=== PATIENT | male | born 1960 | race African-American/Black ===

== ENCOUNTER 2017-05-16 16:49 | Emergency (ER) | payer SELFPAY | END 2017-05-16 18:18 | disposition home or self-care (01) | LOC: ER 16:49 | DX: J34.89 Other specified disorders of nose and nasal sinuses (principal); R51 Headache; I10 Essential (primary) hypertension; Z79.899 Other long term (current) drug therapy | CPT/HCPCS: 99281 ==

== ENCOUNTER 2017-12-23 21:01 | Emergency (ER) | payer SELFPAY ==
[2017-12-23] MEDS ORDERED: IV NORMAL SALINE 1000ML BAG 1,000 ML IV ONE (21:30)
[2017-12-23 21:40] LABS: BASO # 0.1 x10^3/uL (0.0-0.2); BASO % 1 % (0-3); EOS # 0.1 x10^3/uL (0.0-0.7); EOS % 1 % (0-3); HEMATOCRIT 53.3 % (39.0-53.0); HEMOGLOBIN 18.6 g/dL (13.0-17.5); LYMPH # 3.7 x10^3/uL (1.0-4.8); LYMPH % 38 % (24-48); MEAN CORPUSCULAR HEMOGLOBIN 33 pg (25-35); MEAN CORPUSCULAR HGB CONC 35 g/dL (31-37); MEAN CORPUSCULAR VOLUME 96 fL (79-100); MONO # 0.9 x10^3/uL (0.0-1.1); MONO % 9 % (0-9); NEUT # 4.9 x10^3uL (1.8-7.7); NEUT % 51 % (31-73); PLATELET COUNT 212 x10^3/uL (140-400); RED BLOOD COUNT 5.55 x10^6/uL (4.30-5.70); RED CELL DISTRIBUTION WIDTH 14.2 % (11.5-14.5); WHITE BLOOD COUNT 9.7 x10^3/uL (4.0-11.0)
--- NOTE | 2017-12-23 21:41 | RAD ---
EXAM: AP and lateral views of the right humerus DATE: 12/23/2017 9:14 PM INDICATION: right upper arm pain, blunt trauma COMPARISON: No Prior FINDINGS/ IMPRESSION: No evidence of acute fracture or dislocation. No significant soft tissue swelling. Lateral epicondylar enthesopathy. High riding humeral head suggests rotator cuff tear or tendinosis. Electronically signed by: Kevan Stanley MD (12/23/2017 9:38 PM) [facility]
[2017-12-23] MEDS ORDERED: IOHEXOL 300 MG/ML 100ML VIAL. IV ONE (21:45)
[2017-12-23] MEDS ORDERED: CONTRAST GIVEN. MC PRN (21:45)
[2017-12-23 21:48] LABS: CALCIUM 9.3 mg/dL (8.5-10.1); CREATININE 1.4 mg/dL (0.7-1.3); GFR 63.2; POTASSIUM 3.4 mmol/L (3.5-5.1)
[2017-12-23 21:51] LABS: PROTHROMBIN TIME PATIENT 12.6 SEC (11.7-14.0)
[2017-12-23 21:54] LABS: ALBUMIN/GLOBULIN RATIO 0.9 (1.0-1.7); TOTAL BILIRUBIN 0.4 mg/dL (0.2-1.0); TOTAL PROTEIN 8.4 g/dL (6.4-8.2)
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
[2017-12-23] MEDS ORDERED: fentaNYL PF VIAL 100 MCG/2 ML VIAL IV ONE (22:45)
[2017-12-23] MEDS ORDERED: ORPHENADRINE CITRATE 60 MG/2 ML VIAL. IV ONE (22:45)
[2017-12-23] MEDS ORDERED: LABETALOL 20 MG/4 ML DISP.SYRIN. IVP ONE (23:15)
[2017-12-23 23:28] VITALS: BP 187/110
[2017-12-23 23:45] LABS: BILIRUBIN,URINE NEGATIVE (NEG); CLARITY,URINE CLEAR; COLOR,URINE YELLOW; NITRITE,URINE NEGATIVE (NEG); PROTEIN,URINE 30 mg/dL (NEG-TRACE); UROBILINOGEN,URINE 0.2 mg/dL (0.2 mg/dL)
[2017-12-23 23:53] LABS: BACTERIA,URINE 0 /HPF (0-FEW); RBC,URINE RARE /HPF (0-2); SQUAMOUS EPITHELIAL CELL,UR FEW /LPF
[2017-12-23 23:56] LABS: BARBITURATES NEG (NEG); BENZODIAZEPINES NEG (NEG); CANNABINOIDS NEG (NEG); COCAINE NEG (NEG); METHADONE NEG (NEG); OPIATES NEG (NEG); PHENCYCLIDINE NEG (NEG)
[2017-12-23 23:59] LABS: AMPHETAMINE/METHAMPHETAMINE NEG (NEG)
[2017-12-24] MEDS ORDERED: HYDR-971 PO (00:29)
[2017-12-24] MEDS ORDERED: ORPH100T PO (00:29)
--- NOTE | 2017-12-24 00:29 | PHYS DOC ---
Past Medical History Past Medical History: Hypertension Past Surgical History: No Surgical History Alcohol Use: Occasionally Drug Use: None Adult General Chief Complaint Chief Complaint: TRAUMA ACTIVATION HPI HPI Patient is a 57 year old [f__sex] who presents with [] Review of Systems Review of Systems Constitutional: Denies fever or chills [] Eyes: Denies change in visual acuity, redness, or eye pain [] HENT: Denies nasal congestion or sore throat [] Respiratory: Denies cough or shortness of breath [] Cardiovascular: No additional information not addressed in HPI [] GI: Denies abdominal pain, nausea, vomiting, bloody stools or diarrhea [] : Denies dysuria or hematuria [] Musculoskeletal: Denies back pain or joint pain [] Integument: Denies rash or skin lesions [] Neurologic: Denies headache, focal weakness or sensory changes [] Endocrine: Denies polyuria or polydipsia [] All other systems were reviewed and found to be within normal limits, except as documented in this note. Current Medications Current Medications Current Medications Medications (Trade) Dose Ordered Sig/Krys Start Time Stop Time Status Last Admin Dose Admin Cephalexin HCl (Keflex) 500 mg 1X ONCE 12/24/17 00:30 12/24/17 00:31 DC Fentanyl Citrate (Fentanyl 2ml Vial) 50 mcg 1X ONCE 12/23/17 22:45 12/23/17 22:46 DC 12/23/17 23:27 50 MCG Info (CONTRAST GIVEN -- Rx MONITORING) 1 each PRN DAILY PRN 12/23/17 21:45 12/25/17 21:44 Iohexol (Omnipaque 300 Mg/ml) 75 ml 1X ONCE 12/23/17 21:45 12/23/17 21:46 DC 12/23/17 21:53 75 ML Labetalol HCl (Normodyne Iv Push) 10 mg 1X ONCE 12/23/17 23:15 12/23/17 23:16 DC 12/23/17 23:28 10 MG Orphenadrine Citrate (Norflex) 60 mg 1X ONCE 12/23/17 22:45 12/23/17 22:46 DC 12/23/17 23:27 60 MG Sodium Chloride 1,000 ml @ 1,000 mls/hr 1X ONCE 12/23/17 21:30 12/23/17 22:29 DC 12/23/17 21:56 1,000 MLS/HR Allergies Allergies Allergies Coded Allergies Type Severity Reaction Last Updated Verified No Known Drug Allergies 05/16/17 No Physical Exam Physical Exam Constitutional: Well developed, well nourished, no acute distress, non-toxic appearance. [] HENT: Normocephalic, atraumatic, bilateral external ears normal, oropharynx moist, no oral exudates, nose normal. [] Eyes: PERRLA, EOMI, conjunctiva normal, no discharge. [] Neck: Normal range of motion, no tenderness, supple, no stridor. [] Cardiovascular:Heart rate regular rhythm, no murmur [] Lungs & Thorax: Bilateral breath sounds clear to auscultation [] Abdomen: Bowel sounds normal, soft, no tenderness, no masses, no pulsatile masses. [] Skin: Warm, dry, no erythema, no rash. [] Back: No tenderness, no CVA tenderness. [] Extremities: No tenderness, no cyanosis, no clubbing, ROM intact, no edema. [] Neurologic: Alert and oriented X 3, normal motor function, normal sensory function, no focal deficits noted. [] Psychologic: Affect normal, judgement normal, mood normal. [] Current Patient Data Vital Signs Vital Signs Date Time Temp Pulse Resp B/P (MAP) Pulse Ox O2 Delivery O2 Flow Rate FiO2 12/23/17 23:28 79 187/110 Lab Values Laboratory Tests Test 12/23/17 21:15 12/23/17 23:38 White Blood Count 9.7 x10^3/uL (4.0-11.0) Red Blood Count 5.55 x10^6/uL (4.30-5.70) Hemoglobin 18.6 g/dL (13.0-17.5) H Hematocrit 53.3 % (39.0-53.0) H Mean Corpuscular Volume 96 fL (79-100) Mean Corpuscular Hemoglobin 33 pg (25-35) Mean Corpuscular Hemoglobin Concent 35 g/dL (31-37) Red Cell Distribution Width 14.2 % (11.5-14.5) Platelet Count 212 x10^3/uL (140-400) Neutrophils (%) (Auto) 51 % (31-73) Lymphocytes (%) (Auto) 38 % (24-48) Monocytes (%) (Auto) 9 % (0-9) Eosinophils (%) (Auto) 1 % (0-3) Basophils (%) (Auto) 1 % (0-3) Neutrophils # (Auto) 4.9 x10^3uL (1.8-7.7) Lymphocytes # (Auto) 3.7 x10^3/uL (1.0-4.8) Monocytes # (Auto) 0.9 x10^3/uL (0.0-1.1) Eosinophils # (Auto) 0.1 x10^3/uL (0.0-0.7) Basophils # (Auto) 0.1 x10^3/uL (0.0-0.2) Prothrombin Time 12.6 SEC (11.7-14.0) Prothrombin Time INR 1.0 (0.8-1.1) PTT 23 SEC (24-38) L Sodium Level 140 mmol/L (136-145) Potassium Level 3.4 mmol/L (3.5-5.1) L Chloride Level 102 mmol/L (98-107) Carbon Dioxide Level 25 mmol/L (21-32) Anion Gap 13 (6-14) Blood Urea Nitrogen 15 mg/dL (8-26) Creatinine 1.4 mg/dL (0.7-1.3) H Estimated GFR (Cockcroft-Gault) 63.2 BUN/Creatinine Ratio 11 (6-20) Glucose Level 101 mg/dL (70-99) H Lactic Acid Level 2.1 mmol/L (0.4-2.0) H Calcium Level 9.3 mg/dL (8.5-10.1) Total Bilirubin 0.4 mg/dL (0.2-1.0) Aspartate Amino Transferase (AST) 31 U/L (15-37) Alanine Aminotransferase (ALT) 39 U/L (16-63) Alkaline Phosphatase 95 U/L (46-116) Total Protein 8.4 g/dL (6.4-8.2) H Albumin 4.0 g/dL (3.4-5.0) Albumin/Globulin Ratio 0.9 (1.0-1.7) L Lipase 281 U/L (73-393) Ethyl Alcohol Level 52 mg/dL (0-10) H Urine Collection Type Unknown Urine Color Yellow Urine Clarity Clear Urine pH 6.0 Urine Specific [place] >=1.030 Urine Protein 30 mg/dL (NEG-TRACE) Urine Glucose (UA) Negative mg/dL (NEG) Urine Ketones (Stick) Negative mg/dL (NEG) Urine Blood Trace (NEG) Urine Nitrite Negative (NEG) Urine Bilirubin Negative (NEG) Urine Urobilinogen Dipstick 0.2 mg/dL (0.2 mg/dL) Urine Leukocyte Esterase Small (NEG) Urine RBC Rare /HPF (0-2) Urine WBC 11-20 /HPF (0-4) Urine Squamous Epithelial Cells Few /LPF Urine Bacteria 0 /HPF (0-FEW) Urine Opiates Screen Neg (NEG) Urine Methadone Screen Neg (NEG) Urine Barbiturates Neg (NEG) Urine Phencyclidine Screen Neg (NEG) Urine Amphetamine/Methamphetamine Neg (NEG) Urine Benzodiazepines Screen Neg (NEG) Urine Cocaine Screen Neg (NEG) Urine Cannabinoids Screen Neg (NEG) Urine Ethyl Alcohol Pos (NEG) Laboratory Tests 12/23/17 21:15 Laboratory Tests 12/23/17 21:15 EKG EKG [] Radiology/Procedures Radiology/Procedures [] Course & Med Decision Making Course & Med Decision Making Pertinent Labs and Imaging studies reviewed. (See chart for details) [] Dragon Disclaimer Dragon Disclaimer This electronic medical record was generated, in whole or in part, using a voice recognition dictation system. Departure Departure Impression: Primary Impression: Head injury due to trauma Additional Impressions: Shoulder injury UTI (urinary tract infection) Disposition: 01 HOME, SELF-CARE Condition: IMPROVED Referrals: NO PCP (PCP) TAMIKO CEDILLO MD Patient Instructions: Head Injury, Adult, [id number], Shoulder Immobilizer, Shoulder Pain, [id number] Scripts Cephalexin (KEFLEX) 500 Mg Capsule 500 MG PO TID for 7 Days, #21 CAP Prov: MICHAEL JUARES DO 12/24/17 Orphenadrine Citrate (ORPHENADRINE CITRATE) 100 Mg Tablet.er 1 TAB PO BID PRN for MUSCLE PAIN, #14 TAB 0 Refills Prov: MICHALE JUARES DO 12/24/17 Hydrocodone/Apap 5-325 (NORCO 5-325 TABLET) 1 Each Tablet 1 TAB PO PRN Q6HRS PRN for PAIN, #14 TAB 0 Refills Prov: MICHAEL JUARES DO 12/24/17 Problem Qualifiers Primary Impression: Head injury due to trauma Encounter type: initial encounter Qualified Codes: S09.90XA - Unspecified injury of head, initial encounter Additional Impressions: Shoulder injury Encounter type: initial encounter Laterality: right Qualified Codes: S49.91XA - Unspecified injury of right shoulder and upper arm, initial encounter UTI (urinary tract infection) Urinary tract infection type: acute cystitis Hematuria presence: without hematuria Qualified Codes: N30.00 - Acute cystitis without hematuria MICHAEL JUARES DO Dec 24, 2017 00:29
[2017-12-24] MEDS ORDERED: CEPHALEXIN 250 MG CAPSULE. PO ONE (00:30)
[2017-12-24] MEDS ORDERED: CEPH-264 PO (00:48)
[2017-12-24] MEDS ORDERED: IOHEXOL 300 MG/ML 100ML VIAL. ONE (04:45)
== END 2017-12-24 00:40 | disposition home or self-care (01) ==
LOC: ER 21:01
DX: S49.91XA Unspecified injury of right shoulder and upper arm, initial encounter (principal); S09.90XA Unspecified injury of head, initial encounter; I10 Essential (primary) hypertension; N30.00 Acute cystitis without hematuria; X58.XXXA Exposure to other specified factors, initial encounter; Y93.89 Activity, other specified; Y92.89 Other specified places as the place of occurrence of the external cause; Y99.8 Other external cause status
CPT/HCPCS: 36415; 70450; 71260; 72125; 73060; 80053; 80307; 81001; 83605; 83690; 85025; 85610; 85730; 86850; 86900; 86901; 96361; 96374; 96375; 99285; G0480; J2360; J3010; J3490; J7030; Q9967; G0479

== ENCOUNTER 2018-11-14 11:34 | Emergency (ER) | payer SELFPAY ==
[~2018-11-14] VITALS: Ht 406.4 cm; Wt 90.7 kg
[~2018-11-14 11:34] MED LIST: CEPH-264 PO; HYDR-3164 PO; ORPH100T PO
[2018-11-14] MEDS ORDERED: ONDANSETRON PF 4 MG/2 ML VIAL. ONE (11:43)
[2018-11-14 11:59] LABS: BASO # 0.1 x10^3/uL (0.0-0.2); BASO % 0 % (0-3); EOS # 0.1 x10^3/uL (0.0-0.7); EOS % 1 % (0-3); HEMATOCRIT 53.9 % (39.0-53.0); HEMOGLOBIN 18.2 g/dL (13.0-17.5); LYMPH % 15 % (24-48); MEAN CORPUSCULAR HEMOGLOBIN 32 pg (25-35); MEAN CORPUSCULAR HGB CONC 34 g/dL (31-37); MEAN CORPUSCULAR VOLUME 95 fL (79-100); MONO # 0.7 x10^3/uL (0.0-1.1); MONO % 5 % (0-9); NEUT % 79 % (31-73); PLATELET COUNT 291 x10^3/uL (140-400); RED CELL DISTRIBUTION WIDTH 14.9 % (11.5-14.5); WHITE BLOOD COUNT 13.9 x10^3/uL (4.0-11.0)
[2018-11-14] MEDS ORDERED: PROPOFOL 10 MG/ML (20ML) VIAL. IV ONE (12:00)
--- NOTE | 2018-11-14 12:00 | PHYS DOC ---
Past Medical History Past Medical History: CAD, CVA, Hypertension Past Surgical History: No Surgical History Alcohol Use: Occasionally Drug Use: None Adult General Chief Complaint Chief Complaint: ALTERED MENTAL STATUS HPI HPI Patient is a 58-year-old male, who arrives in the emergency department unresponsive. According to EMS, the patient was last seen normal at about 7:30 AM this morning. And then found in the bathroom unresponsive besides his toilet. EMS reports that the patient had an elevated blood pressure above 200 systolic when they arrived. They were assisting the patient's ventilations, which were initially week, but he is breathing upon arrival to the emergency department. Within 30 seconds of being transferred to the emergency department [facility], the patient did vomit. He is having some sonorous respirations, has slightly dilated and unresponsive pupils, and exhibit some posturing like movements. According to EMS he recently moved to this area from [place], has a prior history of a stroke, unknown if ischemic or hemorrhagic, and reportedly has some cardiac stents as well. At the initial assessment there is no family present in the emergency department. There are no known alleviating or exacerbating factors to his symptoms. Review of Systems Review of Systems Unable to obtain review of systems secondary to patient condition. Current Medications Current Medications Current Medications Medications (Trade) Dose Ordered Sig/Krys Start Time Stop Time Status Last Admin Dose Admin Etomidate (Amidate) 20 mg STK-MED ONCE 11/14/18 12:17 11/14/18 12:17 DC Nicardipine HCl 50 mg/Sodium Chloride 250 ml @ 25 mls/hr CONT PRN 11/14/18 12:15 Ondansetron HCl (Zofran) 4 mg STK-MED ONCE 11/14/18 11:43 11/14/18 11:43 DC Phytonadione 10 mg/Dextrose 51 ml @ 102 mls/hr 1X ONCE 11/14/18 13:15 11/14/18 13:44 DC Propofol (Diprivan) 200 mg 1X ONCE 11/14/18 12:00 11/14/18 12:01 DC 11/14/18 13:32 200 MG Succinylcholine Chloride (Anectine) 200 mg STK-MED ONCE 11/14/18 12:17 11/14/18 12:17 DC Allergies Allergies Allergies Coded Allergies Type Severity Reaction Last Updated Verified No Known Drug Allergies 2/13/18 No Physical Exam Physical Exam PHYSICAL EXAM: CONSTITUTIONAL: Well developed, well nourished HEAD: normocephalic, atraumatic EENT: PERRL, EOMI. pupils are 6 mm and nonreactive. Conjunctivae normal color, sclerae non-icteric; moist mucous membranes. NECK: Supple, non-tender; no meningismus. LUNGS: Sonorous respirations, but lungs are clear. HEART: Regular rate and rhythm, no murmur CHEST: No deformity; non-tender ABDOMEN: The abdomen is soft, and non-tender, no masses or bruits. EXTREM: Normal ROM; no deformity, no calf tenderness. Normal pulses palpable in all extremities. There is no pedal edema. SKIN: No rash; no diaphoresis NEURO: Patient is unresponsive. Does withdraw to painful stimulus. Exhibits intermittent posturing, decorticate BACK: No CVA TTP. Current Patient Data Vital Signs Vital Signs Date Time Temp Pulse Resp B/P (MAP) Pulse Ox O2 Delivery O2 Flow Rate FiO2 11/14/18 11:34 97.9 66 14 182/112 (135) 100 Bag Valve Mask 15.0 97.9 Lab Values Laboratory Tests Test 11/14/18 11:47 11/14/18 12:00 11/14/18 12:30 11/14/18 12:59 White Blood Count 13.9 x10^3/uL (4.0-11.0) H Red Blood Count 5.70 x10^6/uL (4.30-5.70) Hemoglobin 18.2 g/dL (13.0-17.5) H Hematocrit 53.9 % (39.0-53.0) H Mean Corpuscular Volume 95 fL (79-100) Mean Corpuscular Hemoglobin 32 pg (25-35) Mean Corpuscular Hemoglobin Concent 34 g/dL (31-37) Red Cell Distribution Width 14.9 % (11.5-14.5) H Platelet Count 291 x10^3/uL (140-400) Neutrophils (%) (Auto) 79 % (31-73) H Lymphocytes (%) (Auto) 15 % (24-48) L Monocytes (%) (Auto) 5 % (0-9) Eosinophils (%) (Auto) 1 % (0-3) Basophils (%) (Auto) 0 % (0-3) Neutrophils # (Auto) 11.0 x10^3/uL (1.8-7.7) H Lymphocytes # (Auto) 2.0 x10^3/uL (1.0-4.8) Monocytes # (Auto) 0.7 x10^3/uL (0.0-1.1) Eosinophils # (Auto) 0.1 x10^3/uL (0.0-0.7) Basophils # (Auto) 0.1 x10^3/uL (0.0-0.2) Prothrombin Time 16.9 SEC (11.7-14.0) H Prothrombin Time INR 1.4 (0.8-1.1) H Activated Partial Thromboplast Time 30 SEC (24-38) Urine Collection Type Unknown Urine Color Yellow Urine Clarity Clear Urine pH 6.0 Urine Specific [place] 1.015 Urine Protein 100 mg/dL (NEG-TRACE) Urine Glucose (UA) 100 mg/dL (NEG) Urine Ketones (Stick) Trace mg/dL (NEG) Urine Blood Trace (NEG) Urine Nitrite Negative (NEG) Urine Bilirubin Negative (NEG) Urine Urobilinogen Dipstick 0.2 mg/dL (0.2 mg/dL) Urine Leukocyte Esterase Negative (NEG) Urine RBC 1-2 /HPF (0-2) Urine WBC 1-4 /HPF (0-4) Urine Squamous Epithelial Cells Occ /LPF Urine Bacteria Few /HPF (0-FEW) Urine Hyaline Casts Occasional /HPF Urine Mucus Mod /LPF Sodium Level 137 mmol/L (136-145) Potassium Level 3.9 mmol/L (3.5-5.1) Chloride Level 101 mmol/L (98-107) Carbon Dioxide Level 22 mmol/L (21-32) Anion Gap 14 (6-14) Blood Urea Nitrogen 20 mg/dL (8-26) Creatinine 1.2 mg/dL (0.7-1.3) Estimated GFR (Cockcroft-Gault) 75.2 BUN/Creatinine Ratio 17 (6-20) Glucose Level 180 mg/dL (70-99) H Calcium Level 9.5 mg/dL (8.5-10.1) Magnesium Level 1.8 mg/dL (1.8-2.4) Total Bilirubin 0.8 mg/dL (0.2-1.0) Aspartate Amino Transferase (AST) 30 U/L (15-37) Alanine Aminotransferase (ALT) 35 U/L (16-63) Alkaline Phosphatase 86 U/L (46-116) Troponin I Quantitative < 0.017 ng/mL (0.000-0.055) VA-Hgs-S-Type Natriuretic Peptide 189 pg/mL (0-124) H Total Protein 7.9 g/dL (6.4-8.2) Albumin 4.1 g/dL (3.4-5.0) Albumin/Globulin Ratio 1.1 (1.0-1.7) Lipase 162 U/L (73-393) Ethyl Alcohol Level < 10 mg/dL (0-10) O2 Saturation 98 % (92-99) Arterial Blood pH 7.49 (7.35-7.45) H Arterial Blood pCO2 at Patient Temp 28 mmHg (35-46) L Arterial Blood pO2 at Patient Temp 98 mmHg (75-108) Arterial Blood HCO3 21 mmol/L (21-28) Arterial Blood Base Excess -1 mmol/L (-3-3) FiO2 40 Laboratory Tests 11/14/18 11:47 Laboratory Tests 11/14/18 12:30 EKG EKG [Normal sinus rhythm at a rate of 94 beats per minute, normal axis, normal int ervals, left ventricular hypertrophy, there are no acute ischemic ST/T changes.] Radiology/Procedures Radiology/Procedures [PROCEDURE: PORTABLE CHEST 1V PORTABLE CHEST 1V Clinical History: Acute mental status change Technique: AP view of the chest was obtained at 11/14/2018 11:24 AM. Comparison: None. Findings: The cardiomediastinal silhouette is normal. The pulmonary vasculature is normal. The lungs and pleural margins are clear. The endotracheal tube is well-positioned with its tip 6.5 cm above the yulisa. The NG tube seen at least as far distal as the mid stomach. Impression: No evidence of an acute cardiopulmonary process.] PROCEDURE: CT HEAD WO CONTRAST EXAM: CT Head without IV contrast CLINICAL HISTORY: Altered mental status COMPARISON: None. TECHNIQUE: Routine CT of the head without contrast. Soft tissues and bone windows were reviewed. PQRS compliance statement - One or more of the following individualized dose reduction techniques were utilized for this study: 1. Automated exposure control 2. Adjustment of the mA and/or kV according to patient size 3. Use of iterative reconstruction technique FINDINGS: Hemorrhage is seen likely arising from the left basal ganglia/thalamus extending into the lateral ventricles, third ventricle and fourth ventricle. Compared to prior CT 12/23/2017 there is now hydrocephalus. There is also likely diffuse white matter edema given prominence of the cortical and gyri bilaterally. The cerebellum and brainstem are unremarkable. The calvarium demonstrates no evidence of fracture or focal lesion. Mastoid air cells are clear. Scattered multifocal paranasal sinus opacification likely sinusitis. The visualized portions of the orbits are normal. IMPRESSION: 1. Acute intracranial parenchymal hemorrhage within the left basal ganglia with decompression/extension into the ventricular system. Hemorrhage is seen within the lateral, third and fourth ventricles with dilation of these ventricles and resultant hydrocephalus. Findings of parenchymal and intraventricular hemorrhage with hydrocephalus discussed with emergency room physician at 12:16 PM 11/14/2018. Course & Med Decision Making Course & Med Decision Making Pertinent Labs and Imaging studies reviewed. (See chart for details) []12:12 p.m.: Patient's CT reviewed preliminarily, large bleed extending intraventricular. Neurosurgery paged. 12:45 PM: After some delay was able to speak with the neurosurgeon, who had just started a surgery on a patient with an unstable cervical spine and would be unable to care for this patient. He will likely need an EVD. I spoke with the patient's family, they mentioned that the patient is taking Coumadin but his INR has resulted only 1.4. I have called the transfer center to initiate transfer, the patient's family is agreeable. The patient was initially hypertensive upon arrival, and his blood pressure elevated as high as 273, but has now spontaneously lowered to 108/58, heart rate at about 115. 1:10 PM: Patient's heart rate is increased to about 125 bpm. His blood pressure remains borderline at about [address] Choudhary has accepted patient in transfer. CRITICAL CARE TIME: [60] Minutes, excluding any procedures and care of other patients. INTUBATION PROCEDURE NOTE: The patient was preoxygenated with 100% oxygen, given etomidate and succinylcholine, 20 mg and 100 mg respectively, some emesis material was suctioned from the posterior pharynx, and then 8-0 endotracheal tube was passed through the cords, with good color change, bilateral breath sounds, absence of breath sounds over the stomach, and good positioning on chest x-ray. Dragon Disclaimer Dragon Disclaimer This electronic medical record was generated, in whole or in part, using a voice recognition dictation system. NIHSS Stroke Scale NIH Stroke Scale: NIH Stroke Scale Response (Comments) Value Level of Consciousness: 3 Unresponsive 3 LOC Questions: 2 Answers neither correct 2 LOC Commands: 2 Perform neither task 2 Best Gaze: 2 Forced deviation 2 Visual: 3 Bilateral hemianopia 3 Facial Palsy: 0 Normal, symmetrical 0 Motor - Left Arm 3 Limb falls 3 Motor - Right Arm 3 Limb falls 3 Motor - Left Leg 3 Limb falls 3 Motor: Right Leg 3 Limb falls 3 Limb Ataxia: 0 Absent 0 Sensory: 2 Severe to total loss 2 Best Language: 3 Mute 3 Dysathria: 3 Intubated 0 Extinction and Inattention: 0 Normal 0 Total 29 Departure Departure Impression: Primary Impression: Hemorrhagic stroke Additional Impression: Obstructive hydrocephalus Disposition: 02 TRANSFER T-[facility] Condition: CRITICAL Referrals: NO PCP (PCP) Problem Qualifiers JANIYA HILL MD Nov 14, 2018 12:00
--- NOTE | 2018-11-14 12:06 | RAD ---
PORTABLE CHEST 1V Clinical History: Acute mental status change Technique: AP view of the chest was obtained at 11/14/2018 11:24 AM. Comparison: None. Findings: The cardiomediastinal silhouette is normal. The pulmonary vasculature is normal. The lungs and pleural margins are clear. The endotracheal tube is well-positioned with its tip 6.5 cm above the yulisa. The NG tube seen at least as far distal as the mid stomach. Impression: No evidence of an acute cardiopulmonary process. Electronically signed by: Jose F Gleason III, MD (11/14/2018 12:03 PM) [facility]
[2018-11-14 12:08] LABS: BILIRUBIN,URINE NEGATIVE (NEG); CLARITY,URINE CLEAR; COLOR,URINE YELLOW; NITRITE,URINE NEGATIVE (NEG); PROTEIN,URINE 100 mg/dL (NEG-TRACE); UROBILINOGEN,URINE 0.2 mg/dL (0.2 mg/dL)
[2018-11-14 12:13] LABS: PROTHROMBIN TIME PATIENT 16.9 SEC (11.7-14.0)
[2018-11-14 12:14] LABS: SQUAMOUS EPITHELIAL CELL,UR OCC /LPF
[2018-11-14 12:15] LABS: BACTERIA,URINE FEW /HPF (0-FEW); HYALINE CASTS, URINE OCCASIONAL /HPF
[2018-11-14] MEDS ORDERED: ETOMIDATE 20 MG/10 ML VIAL. IV ONE (12:17)
[2018-11-14] MEDS ORDERED: SUCCINYLCHOLINE 200 MG/10 ML VIAL. ONE (12:17)
--- NOTE | 2018-11-14 12:24 | RAD ---
EXAM: CT Head without IV contrast CLINICAL HISTORY: Altered mental status COMPARISON: None. TECHNIQUE: Routine CT of the head without contrast. Soft tissues and bone windows were reviewed. PQRS compliance statement - One or more of the following individualized dose reduction techniques were utilized for this study: 1. Automated exposure control 2. Adjustment of the mA and/or kV according to patient size 3. Use of iterative reconstruction technique FINDINGS: Hemorrhage is seen likely arising from the left basal ganglia/thalamus extending into the lateral ventricles, third ventricle and fourth ventricle. Compared to prior CT 12/23/2017 there is now hydrocephalus. There is also likely diffuse white matter edema given prominence of the cortical and gyri bilaterally. The cerebellum and brainstem are unremarkable. The calvarium demonstrates no evidence of fracture or focal lesion. Mastoid air cells are clear. Scattered multifocal paranasal sinus opacification likely sinusitis. The visualized portions of the orbits are normal. IMPRESSION: 1. Acute intracranial parenchymal hemorrhage within the left basal ganglia with decompression/extension into the ventricular system. Hemorrhage is seen within the lateral, third and fourth ventricles with dilation of these ventricles and resultant hydrocephalus. Findings of parenchymal and intraventricular hemorrhage with hydrocephalus discussed with emergency room physician at 12:16 PM 11/14/2018. Electronically signed by: Kevan Stanley MD (11/14/2018 12:21 PM) [facility]
[2018-11-14 12:58] LABS: CALCIUM 9.5 mg/dL (8.5-10.1); CREATININE 1.2 mg/dL (0.7-1.3); GFR 75.2; POTASSIUM 3.9 mmol/L (3.5-5.1)
--- NOTE | 2018-11-14 12:58 | EKG ---
[facility] [address] [place] [address] Test Date: 2018-11-14 Test Time: 12:26:48 Pat Name: MICHAEL MORILLO Department: Room: Gender: M Transformer Maker: : [id number] Requested By: JANIYA HILL Order Number: [id number] Reading MD: Measurements Intervals [place] Rate: 94 P: 43 SC: 174 QRS: 42 QRSD: 88 T: 57 QT: 382 QTc: 483 Interpretive Statements SINUS RHYTHM PROLONGED QT BORDERLINE ECG No previous ECG available for comparison
[2018-11-14 13:02] LABS: BASE EXCESS ABG -1 mmol/L (-3-3); HCO3 ABG 21 mmol/L (21-28); PCO2 ABG 28 mmHg (35-46); PO2 ABG 98 mmHg (75-108); SAT O2 ABG 98 % (92-99)
[2018-11-14 13:02] LABS: ALBUMIN 4.1 g/dL (3.4-5.0); ALBUMIN/GLOBULIN RATIO 1.1 (1.0-1.7); MAGNESIUM 1.8 mg/dL (1.8-2.4); TOTAL BILIRUBIN 0.8 mg/dL (0.2-1.0); TOTAL PROTEIN 7.9 g/dL (6.4-8.2)
[2018-11-14 13:07] LABS: FIO2 ABG 40
[2018-11-14 13:14] VITALS: BP 94/63
[2018-11-14] MEDS ORDERED: PHYTONADIONE (VIT K1) IV 10 MG in IV DEXTROSE 5% 50 ML IV ONE (13:15)
== END 2018-11-14 13:22 | disposition short-term general hospital (02) ==
LOC: ER 11:34
DX: I62.9 Nontraumatic intracranial hemorrhage, unspecified (principal); I10 Essential (primary) hypertension; G91.1 Obstructive hydrocephalus
CPT/HCPCS: 31500; 36415; 36600; 51702; 70450; 71045; 80053; 81001; 82805; 83690; 83735; 83880; 84484; 85025; 85610; 85730; 93005; 99291; G0480; J2704; 94002